=== PATIENT | female | born 1995 | race Caucasian/White ===

== ENCOUNTER 2016-10-12 16:30 | Emergency (ER) | payer BC, OTHER ==
[2016-10-12 17:02] VITALS: BP 110/74; PULSE 94; RESP 20; TEMP 97; O2SAT 100
[2016-10-12 17:52] LABS: HEMATOCRIT 39 % (35-47)
[2016-10-12 17:53] LABS: EOSINOPHILS % (AUTO) 1 % (0-9); MEAN CORPUSCULAR HGB CONC 35.2 gm/dl (32.0-36.0); MEAN CORPUSCULAR VOLUME 86 fL (81-99); MONOCYTES % (AUTO) 9.5 % (0-12); NEUTROPHILS % (AUTO) 73.8 % (37-80)
[2016-10-12 17:54] LABS: BASOPHILS % (AUTO) 1 % (0-3)
[2016-10-12 18:10] LABS: ALBUMIN 4.2 gm/dl (3.4-5.0); THYROID STIMULATING HORMONE 1.378 uU/ml (0.358-3.740)
[2016-10-12 18:12] LABS: APPEARANCE,URINE Cloudy; BILIRUBIN,URINE NEGATIVE (NEGATIVE); COLOR,URINE Yellow; GLUCOSE, URINE (UA) NEGATIVE (NEGATIVE); KETONES,URINE NEGATIVE (NEGATIVE); LEUKOCYTE ESTERASE ,URINE TRACE (NEGATIVE); NITRATE,URINE NEGATIVE (NEGATIVE); OCCULT BLOOD,URINE NEGATIVE (NEG-TRACE); PH,URINE 8.5; UROBILINOGEN,URINE 0.2 (0.2-1.0 EU)
[2016-10-12 18:25] LABS: WBC,URINE UNABLE (0-5AV/HPF)
[2016-10-12 18:26] LABS: RBC,URINE UNABLE (0-3AV/HPF)
[2016-10-12 18:27] LABS: AMPHETAMINES NEGATIVE (NEGATIVE); METHADONE NEGATIVE (NEGATIVE); OPIATES(OP13) NEGATIVE (NEGATIVE); OXYCODONE(OXY) NEGATIVE (NEGATIVE); PROPOXYPHENE(PPX) NEGATIVE (NEGATIVE); TRICYCLIC ANTIDEPRESSANTS NEGATIVE (NEGATIVE)
[2016-10-12] MEDS ORDERED: DIAZEPAM 5 MG TAB PO ONE (19:33)
[2016-10-12] MEDS ORDERED: DIAZEPAM 5 MG TAB ONE (19:36)
[2016-10-12 20:48] LABS: SALICYLATE < 2.8 mg/dl (2.8-30.0)
== END 2016-10-12 20:45 | DRG 880 ==
LOC: ED 16:30
DX: R45.851 Suicidal ideations (principal)
CPT/HCPCS: 36415; 80053; 80305; 80307; 81001; 84443; 84703; 85025; 99282; 99283